=== PATIENT | female | born 1980 | race Caucasian/White ===

== ENCOUNTER 2017-02-28 17:45 | Emergency (ER) | payer BC ==
[2017-02-28] MEDS ORDERED: HYDROcodone/ACETAMIN 5-325 MG* 1 TAB PO ONE (18:14)
--- NOTE | 2017-02-28 19:00 | RAD ---
HISTORY: Injury, fall COMPARISONS: None VIEWS: 2, Frontal and lateral views of the right wrist FINDINGS: BONE DENSITY: Normal. BONES: There is a dorsally angulated and displaced comminuted fracture of the distal radial metaphysis with articular extension. There is approximately 60 degrees of dorsal angulation. There is a nondisplaced fracture of the styloid process of the ulna. JOINTS: There is no arthropathy. ALIGNMENT: There is no dislocation. SOFT TISSUES: Unremarkable. OTHER FINDINGS: None. IMPRESSION: DORSALLY ANGULATED AND DISPLACED FRACTURE OF THE DISTAL RADIAL METAPHYSIS. NONDISPLACED FRACTURE OF THE STYLOID PROCESS OF THE ULNA.
[2017-02-28] MEDS ORDERED: Morphine INJ* 4 MG/ML 1 ML CARPUJECT IV ONE (19:13)
[2017-02-28] MEDS ORDERED: Ondansetron INJ* 2 MG/ML VIAL IV ONE (19:13)
[2017-02-28] MEDS ORDERED: NS 0.9% 1000 ML* 1,000 ML IV ONE (19:14)
--- NOTE | 2017-02-28 19:25 | ED ---
Upper Extremity Pain - HPI Summary HPI Summary: Rt hand dominant pt here w/ Rt wrist pain since falling around 17:15 today while playing kickball. Denies numbness, tingling, weakness. Moving fingers but only minimally as it triggers pain in wrist. Pain was high so was given norco upon entrance to [facility] - somewhat better but still very uncomfortable. Icing and elevating. Last ate at 14:00 today - has only been sipping water since. Feels nausea now - not sure if from pain, norco or hunger. No other injuries to report. 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 - Hx Last Menstrual Period: Mar 2012 - Allergies/Home Medications Allergies/Adverse Reactions: Allergies Allergy/AdvReac Type Severity Reaction Status Date / Time No Known Allergies Allergy Verified 12/25/16 08:57 PMH/Surg Hx/FS Hx/Imm Hx Previously Healthy: Yes Endocrine/Hematology History: Denies: Hx Anticoagulant Therapy, Hx Blood Disorders, Hx Diabetes, Hx Thyroid Disease, Hx Anemia, Hx Unexplained Bleeding, Autoimmune Disease Cardiovascular History: Denies: Hx Hypertension Respiratory History: Reports: Hx Seasonal Allergies Denies: Hx Asthma, Hx Chronic Obstructive Pulmonary Disease (COPD) GI History: Reports: Hx Gastroesophageal Reflux Disease - weak esophageal sphincter - takes ranitidine Denies: Hx Ulcer Infectious Disease History: No Infectious Disease History: Denies: Hx Clostridium Difficile, Hx Hepatitis, Hx Human Immunodeficiency Virus (HIV), Hx of Known/Suspected MRSA, Hx Shingles, Hx Tuberculosis, Hx Known/ Suspected VRE, Hx Known/Suspected VRSA, History Other Infectious Disease, Traveled Outside the [place] in Last 30 Days - Family History Known Family History: Positive: None - Social History Occupation: Employed Full-time Lives: With Family Alcohol Use: Weekly Alcohol Amount: few glasses of wine on weekends Hx Substance Use: No Substance Use Type: Reports: None Hx Tobacco Use: No Smoking Status (MU): Never Smoked Tobacco Review of Systems Negative: Chest Pain Negative: Shortness Of Breath Positive: Nausea - see HPI Positive: no symptoms reported Musculoskeletal: Other - see HPI Skin: Negative Neurological: Negative Positive: Anxious - upset by seeing deformed wrist but calm and cooperative All Other Systems Reviewed And Are Negative: Yes Physical Exam Triage Information Reviewed: Yes Vital Signs On Initial Exam: Initial Vitals Temp Pulse Resp BP Pulse Ox 98.6 F 107 20 124/75 99 02/28/17 17:50 02/28/17 17:50 02/28/17 17:50 02/28/17 17:50 02/28/17 17:50 Vital Signs Reviewed: Yes Appearance: Positive: Ill-Appearing - generalized pallor, appears fatigued, Pain Distress, Thin Skin: Positive: Warm, Dry - no erythema, no ecchymosis or skin breakdown over affected area Head/Face: Positive: Normal Head/Face Inspection Eyes: Positive: EOMI, Conjunctiva Clear ENT: Positive: Hearing grossly normal Respiratory/Lung Sounds: Positive: Breath Sounds Present Cardiovascular: Positive: RRR - cap refill < 2 seconds distal t injury however radial pulse is difficult to assess given distorted anatomy Musculoskeletal: Positive: Limited @ - Rt wrist grossly deformed w/ bulge dorsally - no movement of Rt wrist; moving phalanges while in extended position - does not flex for fear of pain Neurological: Positive: Sensory/Motor Intact - sensation grossly intact in all 5 phalanges of Rt hand, Alert, Oriented to Person Place, Time, CN Intact II-III Psychiatric: Positive: Normal Diagnostics - Vital Signs Vital Signs Temp Pulse Resp BP Pulse Ox 02/28/17 17:50 98.6 F 107 20 124/75 99 - Laboratory Result Diagrams: 02/28/17 20:00 02/28/17 20:00 Lab Statement: Any lab studies that have been ordered have been reviewed, and results considered in the medical decision making process. Course/Dx - Course Course Of Treatment: Rt hand dominant pt here w/ fall at 17:15 today - landed on Rt wrist and XR reveals dorsally angulated fracture of distal radial diaphysis w/ ulnar styloid fx (non-displaced). Her pain improved somewhat w/ norco but still present and also has nausea. Line for better pain/nausea control and labs ordered in the event she requires surgical intervention - last ate at 14:00. Spoke w/ Dr. Ayon who will attempt hem block and reduction in ED first. UPDATE: Dr. Ayon performed successful reduction (see note). Pt to be d/ c'd home and f/u outpt this week. N/V intact s/p splinting prior to d/c. - Diagnoses Provider Diagnoses: Closed fracture of right distal radius Discharge - Discharge Plan Condition: Stable Disposition: HOME Prescriptions: Ibuprofen TAB* [Motrin TAB* 600 MG] 600 mg PO Q6H PRN #20 tab PRN Reason: Pain oxyCODONE/Acetamin 5/325 MG* [Percocet 5/325 TAB*] 1 tab PO Q6H PRN #20 tab MDD 4 PRN Reason: Pain Patient Education Materials: Wrist Fracture in Adults (ED), Splint Care (ED) Referrals: Merna Casanova NP [Primary Care Provider] - Additional Instructions: Rest, ice, elevate in sling Keep splint clean, dry and intact until seen by orthopedics - call Wednesday to schedule an appointment this week Ibuprofen with food for pain and swelling. You may take percocet, a stronger pain medication, as needed *If you develop swelling, tingling, numbness, severe pain call orthopedics or return to ED
[2017-02-28] MEDS ORDERED: Lidocaine 1%* 5 ML VIAL ONE (20:03)
[2017-02-28 20:11] LABS: Hematocrit 37 % (35-47); Hemoglobin 12.8 g/dl (12.0-16.0); Mean Corpuscular HGB Conc 34 g/dl (31-36); Mean Corpuscular Hemoglobin 32 pg (27-31); Mean Corpuscular Volume 93 fL (80-97); Mean Platelet Volume 9 um3 (7.4-10.4); Red Blood Count 4.03 10^6/ul (4.0-5.4); Red Cell Distribution Width 13 % (10.5-15); White Blood Count 12.9 10^3/ul (3.5-10.8)
[2017-02-28 20:45] LABS: ALT 20 U/L (7-52); Albumin 4.2 g/dL (3.2-5.2); Alkaline Phosphatase 26 U/L (34-104); Blood Urea Nitrogen 13 mg/dL (6-24); CO2 Carbon Dioxide 23 mmol/L (22-32); Calcium 9.2 mg/dL (8.6-10.3); Chloride 104 mmol/L (101-111); EGFR African American 103.5 (>60); EGFR Non-African American 80.5 (>60); Globulin 2.7 g/dL (2-4); Glucose 117 mg/dL (70-100); Sodium 134 mmol/L (133-145); Total Protein 6.9 g/dL (6.4-8.9)
[2017-02-28 20:48] LABS: Anion Gap 7 mmol/L (2-11)
--- NOTE | 2017-02-28 21:26 | RAD ---
HISTORY: Post reduction COMPARISONS: February 28, 2017 at 6:37 PM VIEWS: 2, Frontal and lateral views of the right wrist performed in a cast which correspond bone detail FINDINGS: BONE DENSITY: Normal. BONES: Again noted is comminuted fracture of the distal radial metaphysis. There has been interval reduction of the angulation. Again noted is a nondisplaced fracture of the styloid process of the ulna JOINTS: There is no arthropathy. ALIGNMENT: There is no dislocation. SOFT TISSUES: Unremarkable. OTHER FINDINGS: None. IMPRESSION: THERE HAS BEEN INTERVAL REDUCTION IN THE ANGULATION OF THE COMMINUTED FRACTURE OF THE DISTAL RADIUS. AGAIN NOTED IS A FRACTURE OF THE STYLOID PROCESS OF THE LEFT.
[2017-02-28 21:45] VITALS: BP 116/71
[2017-02-28] MEDS ORDERED: Ibuprofen TAB* 800 MG PO ONE (22:07)
[2017-02-28] MEDS ORDERED: oxyCODONE/Acetamin 5/325 MG* TAB PO ONE ×2 (22:07→22:24)
--- NOTE | 2017-03-02 14:03 | CONS ---
CONSULTATION REPORT: DATE OF CONSULT: 02/28/17 - EMERGENCY DEPT CHIEF COMPLAINT: Right wrist pain. HISTORY OF PRESENT ILLNESS: Yara is a 36-year-old woman who was playing kickball, she ran into another player and landed on her outstretched right wrist. She has an obvious marked deformity of the distal radius. She denies other injury. X-ray shows a comminuted metaphyseal fracture of the distal radius which is markedly displaced and a very small ulnar styloid fracture. She denies numbness and tingling in her fingers. PHYSICAL EXAM: She has an obvious deformity of the distal radius with tenderness of the distal radius and distal ulna. She has intact neurovascular function. Her skin is intact. IMPRESSION: Right distal radius fracture and ulnar styloid fracture. PLAN/RECOMMENDATIONS: The patient was given an IV dose of pain medicine and then a hematoma block with 10 cc of 1% plain lidocaine. The fracture was then manipulated and reduced and a sugar-tong splint was placed in flexion. Postreduction x-rays AP and lateral showed much improved alignment of the fracture fragments. The patient was advised to ice and elevate her wrist, move her finger frequently, follow up in 1 week for re-x-ray. [id number]/[place] #: [id number] NELDA
== END 2017-02-28 22:38 | disposition home or self-care (01) ==
LOC: ED 17:45
DX: S52.501A Unspecified fracture of the lower end of right radius, initial encounter for closed fracture (principal); S52.611A Displaced fracture of right ulna styloid process, initial encounter for closed fracture; Y93.6A Activity, physical games generally associated with school recess, summer camp and children; Y92.9 Unspecified place or not applicable; W03.XXXA Other fall on same level due to collision with another person, initial encounter
CPT/HCPCS: 25605; 36415; 80053; 85025; 96360; 96374; 96375; 99283; A9270-GY; J2270; J2405

== ENCOUNTER 2021-06-10 05:00 | Inpatient (IN) ==
[2021-06-10] MEDS ORDERED: Buffered Lidocaine 1% SYRIN 1 ml INTRADERM ONE ×2 (05:39→08:38)
[2021-06-10] MEDS ORDERED: Lactated Ringers 1000 ml BAG 1,000 ML IV ONE (08:38)
[2021-06-10] MEDS ORDERED: Lactated Ringers 1000 ml BAG 1,000 ML IV SCH ×2 (09:00→18:00)
[2021-06-10 09:16] LABS: Urine Benzodiazepine Screen None Detected (None Detect); Urine Cannabinoids Screen None Detected (None Detect); Urine Opiates Screen None Detected (None Detect)
[2021-06-10] MEDS ORDERED: Dibucaine 1% OINT 28.35 GM TUBE PR PRN (17:42)
[2021-06-10] MEDS ORDERED: Oxytocin 10 UNITS/ML 1 ML VIAL IM ONE (17:42)
[2021-06-10] MEDS ORDERED: Witch Hazel PAD JAR TOPICAL PRN (17:42)
[2021-06-10] MEDS ORDERED: Phenylephrine 40 mcg/mL 10mL (400mcg) SYRINGE ONE (18:11)
[2021-06-10] MEDS ORDERED: Oxytocin 10 UNITS/ML 1 ML VIAL ONE (18:11)
[2021-06-11 07:03] LABS: ABS Lymphocytes 1.8 10^3/ul (1.0-4.8); ABS Monocytes 1.2 10^3/ul (0-0.8); ABS Neutrophils 14.3 10^3/ul (1.5-7.7); Eosinophil % 0.2 %; Hematocrit 35 % (35-47); Hemoglobin 12.1 g/dL (12.0-16.0); Lymphocyte % 10.3 %; Mean Corpuscular HGB Conc 34 g/dL (31-36); Mean Corpuscular Hemoglobin 31 pg (27-31); Mean Corpuscular Volume 90 fL (80-97); Mean Platelet Volume 8.6 fL (7.4-10.4); Platelet Count 154 10^3/uL (150-450); Red Blood Count 3.88 10^6 /uL (3.70-4.87); Red Cell Distribution Width 14 % (10-15); White Blood Count 17.4 10^3/uL (3.5-10.8)
[2021-06-12 08:10] VITALS: BP 118/77
== END 2021-06-12 11:30 | disposition home or self-care (01) | DRG 560 ==
LOC: MCHOBOUT 05:00 → MCHOB 10:06
PROVIDERS: ADMIT Midwife; ATTEND Midwife